=== PATIENT | female | born 1990 | race Caucasian/White ===

== ENCOUNTER 2020-02-06 12:06 | Inpatient (IN) | payer OTHER ==
--- NOTE | 2020-02-06 13:24 | BHS.RME ---
Substance Use & Tx History - Substance Use History Opiates (Heroin) Frequency of use: Daily Substance route: Inhalation (ex: sniffing or snorting) Date of Last Use: 02/05/20 - Last Treatment Date of last treatment: 02/01/2019 Where was last treatment: [facility] Program ([facility]) (02/01/2019) Physical/Psych/Mental Status - Behavior General Behavior: Increased activity (restlessness, agitation) Eye Contact: Normal Other Behaviors: Stereotypes - Cooperativeness Cooperativeness: Cooperative - Thinking Thought Processes: Goal Directed Thought content: Future oriented - Physical Health Problems Is patient presently having any pain?: Yes (bilateral hips, legs, back and upper arms) Does patient presently have any injuries (include location): No Does patient currently have a fever: No Is patient : No COWS - Scale Resting Pulse: 0= DE 80 or Below Sweatin=Flushed/Facial Moisture Restless Observation: 3= Extraneous Movement Pupil Size: 1= Pupils >than Normal Bone or Joint Aches: 2= Severe Diffuse Aches Runny Nose/ Eye Tearin= Runny Nose/Eyes GI Upset > 30mins: 2= Nausea/Diarrhea Tremor Observation: 2= Slight Tremor Visible Yawning Observation: 1= 1-2x During Session Anxiety or Irritability: 2=Irritable/Anxious Goose Flesh Skin: 3=Piloerection COWS Score: 20 Treatment Recommendation - Level of Care Level of Care: Opioid Treatment Program (OTP)
--- NOTE | 2020-02-06 13:36 | HP ---
COWS - Scale Resting Pulse: 0= [place] 80 or Below Sweatin=Flushed/Facial Moisture Restless Observation: 3= Extraneous Movement Pupil Size: 1= Pupils >than Normal Bone or Joint Aches: 2= Severe Diffuse Aches Runny Nose/ Eye Tearin= Runny Nose/Eyes GI Upset > 30mins: 2= Nausea/Diarrhea Tremor Observation: 2= Slight Tremor Visible Yawning Observation: 1= 1-2x During Session Anxiety or Irritability: 2=Irritable/Anxious Goose Flesh Skin: 3=Piloerection COWS Score: 20 CIWA Score - Admission Criteria [facility] Guidelines: Admission for Medically Managed Detox: Requires at least one of the followin. CIWA greater than 12 2. Seizures within the past 24 hours 3. Delirium tremens within the past 24 hours 4. Hallucinations within the past 24 hours 5. Acute intervention needed for co occurring medical disorder 6. Acute intervention needed for co occurring psychiatric disorder 7. Severe withdrawal that cannot be handled at a lower level of care (continued vomiting, continued diarrhea, abnormal vital signs) requiring intravenous medication and/or fluids 8. Admission ROS [facility] Chief Complaint: "I relapsed on heroin and I need help" Allergies/Adverse Reactions: Allergies Allergy/AdvReac Type Severity Reaction Status Date / Time No Known Allergies Allergy Verified 02/06/20 13:37 History of Present Illness: Patient is a 29 year old female who is admitted for heroin withdrawal, seeking detox. Patient is on Xanax 2 mg BID for generalized anxiety with panic attack. She is also on adderall for ADHD, she however reports she has not been taking it. Rx Written Rx Dispensed Drug Quantity Days Supply Prescriber Name dextroamp-amphetamin 30 mg tab 60 30 Hank Chávez MD Payment Method Other Dispenser [facility] #[id number] alprazolam 2 mg tablet 60 30 Hank Chávez MD Payment Method Other Dispenser [facility] #[id number] dextroamp-amphetamin 30 mg tab 60 30 Hank Chávez MD Payment Method Other Dispenser [facility] #[id number] alprazolam 2 mg tablet 60 30 Hank Chávez MD Payment Method Other Dispenser [facility] #[id number] dextroamp-amphetamin 30 mg tab 60 30 Hank Chávez MD Payment Method Other Dispenser [facility] #[id number] alprazolam 2 mg tablet 60 30 Hank Chávez MD Payment Method Other Dispenser [facility] #[id number] dextroamp-amphetamin 30 mg tab 60 30 Hank Chávez MD Payment Method Other Dispenser [facility] #[id number] alprazolam 2 mg tablet 60 30 Hank Chávez MD Payment Method Insurance Dispenser [facility] #[id number] dextroamp-amphetamin 30 mg tab 60 30 Hank Chávez MD Payment Method [place] Dispenser [facility] #[id number] alprazolam 2 mg tablet 60 30 Hank Chávez MD Payment Method Other Dispenser [facility] #[id number] dextroamp-amphetamin 30 mg tab 60 30 Hank Chávez MD Exam Limitations: No Limitations - Ebola screening Have you traveled outside of the country in the last 21 days: No Have you had contact with anyone from an Ebola affected area: No Have you been sick,other than usual withdrawal symptoms: No Do you have a fever: No - Review of Systems Constitutional: Chills, Loss of Appetite, Night Sweats, Changes in sleep, Unintentional Wgt. Loss EENT: reports: Blurred Vision, Nose Congestion Respiratory: reports: Cough (r/t nasal drip) Cardiac: reports: Palpitations GI: reports: Diarrhea, Poor Appetite, Vomiting, Abdominal cramping : reports: No Symptoms Reported Musculoskeletal: reports: Back Pain, Joint Pain, Muscle Pain Integumentary: reports: Flushing, Sweating Neuro: reports: Headache, Tremors Endocrine: reports: Unexplained Weight Loss Hematology: reports: Anemia Psychiatric: reports: Anxious, other (Panic attack) Other Systems: Reviewed and Negative Patient History - Patient Medical History Hx Anemia: Yes Hx Asthma: No Hx Chronic Obstructive Pulmonary Disease (COPD): No Hx Cancer: No Hx Cardiac Disorders: No Hx Congestive Heart Failure: No Hx Hypertension: No Hx Hypercholesterolemia: No Hx Pacemaker: No HX Cerebrovascular Accident: No Hx Seizures: No Hx Dementia: No Hx Diabetes: No Hx Gastrointestinal Disorders: No Hx Liver Disease: No Hx Genitourinary Disorders: No Hx Sexually Transmitted Disorders: No Hx Renal Disease (ESRD): No Hx Thyroid Disease: No Hx Human Immunodeficiency Virus (HIV): No Hx Hepatitis C: No Hx Depression: No Hx Suicide Attempt: No Hx Bipolar Disorder: No Hx Schizophrenia: No Other Medical History: ADHD, Anxiety w/ panic attacks - Patient Surgical History Past Surgical History: No - PPD History Previous Implant?: Yes Documented Results: Negative w/proof Implanted On Prior R Admission?: No PPD to be Administered?: Yes - Reproductive History Patient is a Female of Child Bearing Age (11 -55 yrs old): Yes Last Menstrual Period: 01/28/20 Patient : No - Smoking Cessation Smoking history: Never smoked - Substance & Tx. History Hx Alcohol Use: No Hx Substance Use: Yes Substance Use Type: Heroin, Marijuana Hx Substance Use Treatment: Yes - Substances abused Alprazolam (Xanax) Other (specify): Prescribed Substance route: Oral Frequency: Daily Amount used: 2mg BID Age of first use: 20 Date of last use: 02/05/20 Heroin Substance route: Inhalation Frequency: Daily Amount used: 50 Age of first use: 17 Date of last use: 02/05/20 Marijuana/Hashish Substance route: Inhalation Frequency: Daily Amount used: 20 bags Age of first use: 12 Date of last use: 02/05/20 Admission Physical Exam [facility] - Physical General Appearance: Yes: Tremorous, Irritable HEENTM: Yes: Normocephalic, Normal Voice, Nasal Congestion Respiratory: Yes: Chest Non-Tender, Lungs Clear, Normal Breath Sounds, No Respiratory Distress, No Accessory Muscle Use Neck: Yes: No masses,lesions,Nodules, Supple Breast: Yes: Breast Exam Deferred Cardiology: Yes: Regular Rhythm, Regular Rate, S1, S2 Abdominal: Yes: Normal Bowel Sounds, Non Tender, Soft Genitourinary: Yes: Within Normal Limits Back: Yes: Normal Inspection Musculoskeletal: Yes: full range of Motion, Gait Steady, Pelvis Stable Extremities: Yes: Non-Tender, Tremors Neurological: Yes: manager commercial II-XII NML intact, Fully Oriented, Alert, Normal Mood/Affect, Normal Response Integumentary: Yes: Clammy Lymphatic: Yes: Within Normal Limits - Diagnostic (1) Heroin addiction Current Visit: Yes Status: Acute (2) Generalized anxiety disorder with panic attacks Current Visit: Yes Status: Acute Cleared for Admission [facility] - Detox or Rehab [facility] Level of Care: Medically Managed Detox Regimen/Protocol: Methadone Claeared for Rehab Admission: No Breathalyzer - Breathalyzer Breathalyzer: 0 Urine Drug Screen - Test Device Lot number: [id number] Expiration date: 10/31/21 - Control Is test valid?: Yes - Results Drug screen NEGATIVE: No Urine drug screen results: THC-Marijuana, MOP-Opiates, BZO-Benzodiazepines Inpatient Rehab Admission - Rehab Decision to Admit Inpatient rehab admission?: No
[2020-02-06] MEDS ORDERED: MENTHOL/PHENOL 1 EACH UD MM PRN (13:52)
[2020-02-06] MEDS ORDERED: IBUPROFEN 400 MG TABLET (FP) PO PRN (13:52)
[2020-02-06] MEDS ORDERED: MAGNESIUM CITRATE 300 ML BOTTLE PO PRN (13:52)
[2020-02-06] MEDS ORDERED: METHADONE HCL 10 MG TABLET (FOR DETOX USE ONLY) PO ONE (13:52)
[2020-02-06] MEDS ORDERED: BISMUTH SUBSALICYLATE 524 MG/30 ML UD PO PRN (13:52)
[2020-02-06] MEDS ORDERED: ACETAMINOPHEN 325 MG TABLET (FP) PO PRN ×2 (13:52)
[2020-02-06] MEDS ORDERED: NALOXONE HCL 0.4 MG/ML VIAL IM PRN (13:52)
[2020-02-06] MEDS ORDERED: cloNIDine HCL 0.1 MG TABLET PO PRN (13:52)
[2020-02-06] MEDS ORDERED: MAGNESIUM HYDROX 2400MG/30ML ORAL SUSPENSION 30 ML CUP PO PRN (13:52)
[2020-02-06] MEDS ORDERED: MAG HYDROX/AL HYDROX/SIMETH 30 ML UNIT-DOSE CUP PO PRN (13:52)
[2020-02-06 14:35] VITALS: BMI 19.9
[2020-02-06] MEDS ORDERED: ALPRAZolam 1 MG TABLET PO SCH (14:45)
[2020-02-06] MEDS: METHOCARBAMOL 500 MG TABLET PO PRN ×2 (15:37→22:44)
[2020-02-06] MEDS ORDERED: LORazepam 2 MG TABLET PO PRN (15:45)
[2020-02-06] MEDS: LORazepam 2 MG TABLET PO PRN (16:36)
[2020-02-06] MEDS ORDERED: MELATONIN 5 MG TABLETS PO SCH (22:00)
[2020-02-06] MEDS ORDERED: THIAMINE HCL 100 MG TABLET (FP) PO SCH (22:00)
[2020-02-06] MEDS ORDERED: LORazepam 1 MG TABLET PO SCH (22:00)
[2020-02-07] MEDS: LORazepam 2 MG TABLET PO PRN (05:32)
[2020-02-07 07:04] VITALS: BP 111/69; PULSE 65; TEMP 98.1
--- NOTE | 2020-02-07 09:54 | EKG ---
Test Reason : Blood Pressure : / mmHG Vent. Rate : 057 BPM Atrial Rate : 057 BPM P-R Int : 130 ms QRS Dur : 084 ms QT Int : 438 ms P-R-T Axes : 067 076 066 degrees QTc Int : 426 ms SINUS BRADYCARDIA OTHERWISE NORMAL ECG NO PREVIOUS ECGS AVAILABLE Confirmed by Danis De Oliveira MD ([id number]) on 02/07/2020 9:53:38 AM Referred By: LAMONT YEH Confirmed By:Danis De Oliveira MD
[2020-02-07] MEDS ORDERED: METHADONE (DETOX) 20 MG, METHADONE (DETOX) 5 MG PO ONE (10:00)
[2020-02-07] MEDS ORDERED: PRENATAL VITAMINS W/ FOLIC ACID TABLET (FP) PO SCH (10:00)
[2020-02-08] MEDS ORDERED: METHADONE HCL 10 MG TABLET (FOR DETOX USE ONLY) PO ONE (10:00)
[2020-02-09] MEDS ORDERED: METHADONE (DETOX) 10 MG, METHADONE (DETOX) 5 MG PO ONE (10:00)
[2020-02-10] MEDS ORDERED: METHADONE HCL 10 MG TABLET (FOR DETOX USE ONLY) PO ONE (10:00)
[2020-02-11] MEDS ORDERED: METHADONE HCL 5 MG TABLET (FOR DETOX USE ONLY) PO ONE (06:00)
== END 2020-02-07 07:22 | disposition left against medical advice (07) | DRG 770 ==
LOC: YASAS 12:06 → Y6N 14:10
PROVIDERS: ADMIT Allergy & Immunology; ATTEND Allergy & Immunology
PROC: HZ2ZZZZ Detoxification Services for Substance Abuse Treatment (ICD-10-PCS; principal; 2020-02-06)
DX: F11.23 Opioid dependence with withdrawal (principal); F13.230 Sedative, hypnotic or anxiolytic dependence with withdrawal, uncomplicated; F12.20 Cannabis dependence, uncomplicated; F41.1 Generalized anxiety disorder; F90.9 Attention-deficit hyperactivity disorder, unspecified type
CPT/HCPCS: 81025; 93005; 93010; J0735